=== PATIENT | female | born 1970 | race Caucasian/White ===

== ENCOUNTER 2020-04-27 06:44 | Emergency (ER) | payer SELFPAY ==
[~2020-04-27] VITALS: Ht 167.6 cm; Wt 66.7 kg
[2020-04-27 07:00] VITALS: BP 114/75
[2020-04-27] MEDS ORDERED: IBUPROFEN 800 MG TAB PO ONE (08:00)
== END 2020-04-27 08:31 | disposition home or self-care (01) ==
LOC: ER 06:44
DX: S90.32XA Contusion of left foot, initial encounter (principal); X58.XXXA Exposure to other specified factors, initial encounter; Y93.89 Activity, other specified; Y92.89 Other specified places as the place of occurrence of the external cause; Y99.8 Other external cause status
CPT/HCPCS: 73630